=== PATIENT | male | born 1960 | race Caucasian/White ===

== ENCOUNTER → 2019-07-24 | Outpatient (CLI) | payer OTHER | LOC: CAT 12:47 → LABMALL 12:47 | PROVIDERS: ATTEND Family Medicine | DX: J98.11 Atelectasis (principal); M48.05 Spinal stenosis, thoracolumbar region; M25.78 Osteophyte, vertebrae; K44.9 Diaphragmatic hernia without obstruction or gangrene ==

== ENCOUNTER → 2019-07-27 | Outpatient (CLI) | payer OTHER | LOC: CAT 15:05 | PROVIDERS: ATTEND Internal Medicine Cardiovascular Disease | DX: Z13.6 Encounter for screening for cardiovascular disorders (principal); I25.10 Atherosclerotic heart disease of native coronary artery without angina pectoris; E78.00 Pure hypercholesterolemia, unspecified ==

== ENCOUNTER → 2020-02-19 | Outpatient (CLI) | payer OTHER | LOC: RAD 09:29 | PROVIDERS: ATTEND Internal Medicine | DX: R05 Cough (principal) ==

== ENCOUNTER → 2020-02-29 | Outpatient (CLI) | payer OTHER | LOC: RAD 09:03 | PROVIDERS: ATTEND Internal Medicine | DX: J98.6 Disorders of diaphragm (principal); R06.02 Shortness of breath ==

== ENCOUNTER → 2020-03-13 | Outpatient (CLI) | payer OTHER | LOC: ULTRA 08:27 | PROVIDERS: ATTEND Family Medicine | DX: K81.0 Acute cholecystitis (principal) ==

== ENCOUNTER → 2020-09-17 | Outpatient (CLI) | payer OTHER | LOC: RAD 14:48 | PROVIDERS: ATTEND Internal Medicine | DX: J98.4 Other disorders of lung (principal); J86.9 Pyothorax without fistula ==

== ENCOUNTER → 2021-02-02 | Outpatient (CLI) | payer OTHER | LOC: SJCVCIMAG 01-28 10:45 | PROVIDERS: ATTEND Internal Medicine Cardiovascular Disease | DX: I10 Essential (primary) hypertension (principal); E78.5 Hyperlipidemia, unspecified; R06.00 Dyspnea, unspecified ==